=== PATIENT | male | born 1985 | race Caucasian/White ===

== ENCOUNTER 2020-07-31 17:32 | Emergency (ER) | payer OTHER | END 2020-07-31 19:02 | LOC: ED 17:32 | DX: Z02.89 Encounter for other administrative examinations (principal) ==

== ENCOUNTER 2020-07-31 17:32 | Emergency (ER) | payer BC ==
[~2020-07-31] VITALS: Ht 170.2 cm; Wt 79.4 kg
[2020-07-31 17:38] VITALS: Ht 170.2 cm; Wt 79.4 kg
[2020-07-31 19:02] VITALS: BP 144/108
== END 2020-07-31 19:02 ==
LOC: ED 17:32
DX: R03.0 Elevated blood-pressure reading, without diagnosis of hypertension (principal); F41.9 Anxiety disorder, unspecified; Z02.79 Encounter for issue of other medical certificate